=== PATIENT | female | born 1950 | race Caucasian/White ===

== ENCOUNTER 2016-03-31 05:28 | Inpatient (IN) | payer OTHER ==
[~2016-03-31] VITALS: Ht 168.9 cm; Wt 78.2 kg
[~2016-03-31 05:28] MED LIST: AMBIEN10 M1 GT; AMBIEN10 MG PO; BACLOFEN20 MG PO; BACTROBAN CREAM15 GM TP; BENICAR HCT 201 EACH PO; BENICAR5 MG PO; CARAFATE1 GM PO; DITROPAN5 MG PO; ENDOCET 5-3251 EACH PO; ENDOCET 7.5-321 EACH PO; ERGOCALCIF50000 UNIT PO; EXCEDRIN EXTRA1 EACH PO; EYE DROP TEARS15 ML BOTH EYES; FORTAMET500 M1 PO; IRON325 MG PO; LIORESAL10 MG PO; LIORESAL5 MG PO; LYRICA150 MG PO; LYRICA50 MG PO; MOBIC7.5 MG PO; MORPHINE SULFAT15 M1 PO; MOTRIN400 MG PO; PANTOPRAZOLE SO40 MG PO; PERCOCET 5/31 TABLET PO; PRAVASTATIN SOD20 MG PO; PROAIR HFA8.5 GM IH; PROTONIX40 MG PO; REQUIP1 MG PO; REQUIP2 MG PO; VESICARE5 MG PO; XARTEMIS XR 7.1 EACH PO; ZANAFLEX4 M1 PO; ZOFRAN ODT4 MG PO; ZOLOFT100 MG PO; ZOLOFT25 MG PO
[2016-03-31 06:06] VITALS: BP 152/63
[2016-03-31 12:26] VITALS: BP 140/86
[2016-03-31 16:04] VITALS: BP 125/70
[2016-03-31 18:04] LABS: HEMATOCRIT 32.5 % (36.0-46.0); MCV 90.8 FL (83-99)
[2016-03-31 19:52] VITALS: BP 109/59
[2016-04-01 00:38] VITALS: BP 116/58
[2016-04-01 05:32] VITALS: BP 109/59
[2016-04-01 07:14] LABS: ANION GAP 6 MEQ/L (2-14); CHLORIDE 99 MEQ/L (99-109); GFR ESTIMATE (CALCULATED) > 59 mL/min/; GLUCOSE 92 mg/dL (70-99); POTASSIUM 3.6 MEQ/L (3.7-5.4); SAMPLE HEMOLYSIS CHECK 0; SAMPLE ICTERIC CHECK 0; SAMPLE LIPEMIA CHECK 0; SODIUM 132 MEQ/L (136-147); UREA NITROGEN (BUN) 9 mg/dL (9-23)
[2016-04-01 07:48] VITALS: BP 125/60
[2016-04-02] VITALS: BP 162/73
[2016-04-02 07:20] VITALS: BP 151/70
[2016-04-02] MEDS ORDERED: XARELTO10 MG PO (08:58)
[2016-04-02 10:03] LABS: EOSINOPHIL (%) 0.1 % (0-5); HEMATOCRIT 25.7 % (36.0-46.0); IMMATURE GRANULOCYTE (%) 0.3 % (0.0-0.7); LYMPHOCYTE COUNT 0.7 K/uL (1.0-2.8); MCH 30.9 PG (29.0-34.0); MCHC 34.6 G/DL (30.0-36.0); MCV 89.2 FL (83-99); MONOCYTE (%) 9.2 % (3-12); MONOCYTE COUNT 0.8 K/uL (0-0.8); NEUTROPHIL (%) 82.7 % (45-76); NEUTROPHIL COUNT 7.1 K/uL (1.8-6.4); RBC DIS.WIDTH-CV 13.9 % (11.8-14.6); RBC DIS.WIDTH-SD 45.7 % (39-53)
[2016-04-02 10:11] LABS: PLATELET COUNT 181 K/uL (156-360); RED BLOOD COUNT 2.88 M/uL (3.80-5.20); WHITE BLOOD COUNT 8.6 K/uL (4.1-10.2)
[2016-04-02 11:27] LABS: PLAT.SUFFICIENCY ADEQUATE
== END 2016-04-02 16:10 | disposition home health service (06) | DRG 470 ==
LOC: 3EAST 05:28 → 2SOUTH 05:28 → 3EAST 12:10
PROVIDERS: Orthopaedic Surgery
PROC: 0SRB039 Replacement of Left Hip Joint with Ceramic Synthetic Substitute, Cemented, Open Approach (ICD-10-PCS; principal; 2016-03-31)
DX: M16.12 Unilateral primary osteoarthritis, left hip (principal); G89.29 Other chronic pain; I10 Essential (primary) hypertension; J45.909 Unspecified asthma, uncomplicated; G47.30 Sleep apnea, unspecified; Z98.84 Bariatric surgery status; L05.91 Pilonidal cyst without abscess; Z79.891 Long term (current) use of opiate analgesic; Z87.891 Personal history of nicotine dependence
CPT/HCPCS: 80048; 85014; 85018; 85025; C1713; C1776; J0690; J1885; J2250; J2405; J7050; J7120; S0020

== ENCOUNTER 2017-03-16 21:53 | Inpatient (IN) | payer OTHER ==
[~2017-03-16] VITALS: Ht 167.6 cm; Wt 91.1 kg
[~2017-03-16 21:53] MED LIST changes: +ADVAIR 250/501 DISK IH; +CALTRATE PLUS1 EACH PO; +ENDOCET 10-3251 EACH PO; -ENDOCET 7.5-321 EACH PO; +IRON325 M1 PO; +LIDODERM 5% P1 PATCH TD; +MOBIC15 MG PO; +MULTIVITAMIN1 EAC2 PO; +PROVENTIL,2.5 MG/3 M IH; +VITAMIN B-12 51 EACH SL; +XARELTO10 MG PO
[2017-03-17 06:05] VITALS: BP 146/64
[2017-03-17 11:27] VITALS: BP 165/67
[2017-03-17 15:40] VITALS: BP 131/61
[2017-03-17 20:06] VITALS: BP 117/58
[2017-03-18 00:14] VITALS: BP 160/70
[2017-03-18 04:17] VITALS: BP 132/60
[2017-03-18 06:55] LABS: HEMATOCRIT 31.4 % (36.0-46.0); HEMOGLOBIN 10.1 G/DL (11.9-15.5)
[2017-03-18 08:00] VITALS: BP 134/64
[2017-03-18] MEDS ORDERED: SENNA PLUS TAB1 EACH PO (09:56)
[2017-03-18] MEDS ORDERED: CELECOXIB200 MG PO (09:56)
[2017-03-18] MEDS ORDERED: OXYCONTIN10 MG PO (09:56)
[2017-03-18] MEDS ORDERED: OXYCODONE HCL5 MG PO (09:56)
[2017-03-18] MEDS ORDERED: ASPIR-LOW81 MG PO (09:57)
[2017-03-18 11:00] VITALS: BP 116/57
== END 2017-03-18 11:25 | disposition home or self-care (01) | DRG 483 ==
LOC: ENRESERV 21:53 → 2SOUTH 03-17 05:26 → 3WEST 03-17 11:01 → 2SOUTH 03-17 12:02 → 3WEST 03-18 11:25
PROVIDERS: Orthopaedic Surgery
PROC: 0RRJ00Z Replacement of Right Shoulder Joint with Reverse Ball and Socket Synthetic Substitute, Open Approach (ICD-10-PCS; principal; 2017-03-17)
DX: M19.011 Primary osteoarthritis, right shoulder (principal); M75.121 Complete rotator cuff tear or rupture of right shoulder, not specified as traumatic; Z96.642 Presence of left artificial hip joint; G47.30 Sleep apnea, unspecified; I10 Essential (primary) hypertension; J45.909 Unspecified asthma, uncomplicated; E66.9 Obesity, unspecified; E55.9 Vitamin D deficiency, unspecified; Z98.84 Bariatric surgery status; Z68.32 Body mass index [BMI] 32.0-32.9, adult; Z79.51 Long term (current) use of inhaled steroids; Z83.3 Family history of diabetes mellitus; Z82.49 Family history of ischemic heart disease and other diseases of the circulatory system
CPT/HCPCS: 73020; 85014; 85018; 94640 76; 94799; C1713; J0131; J0690; J1100; J1170; J2250; J2405; J2710; J2795; J3010; J7050; J7120; S0020